=== PATIENT | male | born 1975 | race Caucasian/White ===

== ENCOUNTER 2017-11-19 02:42 | Inpatient (IN) | payer BC ==
[2017-11-19] MEDS ORDERED: HYDROmorphone 0.5 MG/0.5 ML SYRINGE ONE ×2 (03:09→03:23)
[2017-11-19] MEDS ORDERED: Labetalol HCl 100 MG/20 ML VIAL SLOW IVP PRN (05:04)
[2017-11-19 06:01] VITALS: BMI 30.2
[2017-11-19] MEDS: Meperidine HCl/PF 25 MG/ML VIAL SLOW IVP PRN ×2 (06:15→09:20)
[2017-11-19] MEDS: Sodium Chloride 0.9% 1,000 ML IV SCH ×3 (06:15→20:21)
[2017-11-19] MEDS: Piperacillin/Tazobactam 3.375 GM in Sodium Chloride 0.9% 100 ML IVPB SCH ×3 (06:40→20:20)
--- NOTE | 2017-11-19 08:04 | RAD ---
SINGLE VIEW CHEST: Date: 11/19/17 COMPARISON: None. HISTORY: Acute pancreatitis and hypoxia. FINDINGS: Single view of the chest shows a normal sized cardiomediastinal silhouette. There is no evidence of c onsolidation, mass, or pleural effusion. The bones are unremarkable. IMPRESSION: No evidence of acute cardiopulmonary disease. POS: [facility]
[2017-11-19] MEDS: Enoxaparin Sodium 40 MG/0.4 ML SYRINGE SC SCH (09:22)
[2017-11-19] MEDS ORDERED: FOLIC ACID SC SCH (12:30)
[2017-11-19] MEDS ORDERED: ADMIXTURE FEE CHEMO SC SCH (12:30)
[2017-11-19] MEDS: Morphine 4 MG/ML Carpuject SLOW IVP PRN ×3 (12:33→20:17)
--- NOTE | 2017-11-19 16:24 | HP ---
CHIEF COMPLAINT: Abdominal pain, transferred from [place]. HISTORY OF PRESENT ILLNESS: This is a 42-year-old man with history of hypertension, hyperlipidemia, hypercholesterolemia. He transferred from [facility] because of having abdominal pain s tarted in the morning. He said his pain is sharp, diffuse abdomen, started in the epigastrium radiat ed to the whole abdomen, 10/10. He had history of some vomiting for the pain. He went to ER. Over there, they gave him morphine, fentanyl, and that helped with the pain. They gave him and Dila udid. His lipase was more than [address] scan showed pancreatitis. He was transferred here. On further questioning, he did have a similar episode several months ago. Denies any alcohol use. He s aid he just drinks socially. The patient denies any chest pain, short of breath, hematemesis and me carmelina. PAST MEDICAL HISTORY: Hypertension, hyperlipidemia and pancreatitis in the past. MEDICATIONS: He is taking lisinopril, atorvastatin. PAST SURGICAL HISTORY: None. SOCIAL HISTORY: He does not smoke, denies drug use. Alcohol, he claims socially. FAMILY HISTORY: Noncontributory. REVIEW OF SYSTEMS: CONSTITUTIONAL: Negative for fever and chills. EYES: Negative for blurry vision and eye pain. ENT: Negative for sore throat. CARDIOVASCULAR: No active chest pain, no palpitation, no shortness of breath. RESPIRATORY: Negative for cough, no shortness of breath, no wheezing. GASTROINTESTINAL: He does have abdominal pain, nausea, and vomiting. No hematemesis, no melena. GENITOURINARY: Negative for hesitancy, urgency. MUSCULOSKELETAL: Negative for back pain. SKIN: No rash. NEUROLOGIC: Negative for headache, dizziness. HEMO/LYMPHATIC: Negative for any abnormal clotting disorder. PHYSICAL EXAMINATION: GENERAL: When I examined him, he is a middle aged gentleman lying in the bed with distress of pain, 10/10, with mild distress and pain. VITAL SIGNS: Pulse 102, blood pressure 152/95, respiration 21, temperature 99.0. HEENT: Head is atraumatic, normocephalic. Pupils are round, reactive. Extraocular muscles intact. Ears, nose and throat normal. Tongue mucosa moist. NECK: Supple, no JVD, no thyromegaly. Trachea is midline. No lymphadenopathy. LUNGS: Chest has normal vesicular breathing. No added sounds. No use of accessory muscle. CARDIAC: S1, S2 audible. No S3-4, he is tachycardia. ABDOMEN: He has slightly distended. Bowel sounds audible. Diffuse tenderness all abdomen, more epi gastrium. No pulsatile mass palpable. No guarding, no rigidity. BACK: Normal range of motion noted in the back. EXTREMITIES: No pedal edema. No cyanosis or clubbing. NEUROLOGICAL: Alert, oriented x3, no focal deficit. Cranial nerves II-XII normal. SKIN: Normal turgor, warm and dry. PSYCHIATRIC: Normal affect. LABORATORY DATA: Shows WBC 23.8, hematocrit 49, MCV 86, platelets 341, neutrophils 75, bands 15. Ch emistry shows sodium 140, potassium 3.4, chloride 94, carbon dioxide 24, BUN 7, creatinine 0.97, gluc ose 198, calcium 10.0, AST 29, ALT 53. Serum protein 8.4, albumin 1.2. Cholesterol 210. Triglyceri dominguez 644, LDL 125, HDL 39, lipase 790, TSH 0.5. CAT scan showed acute pancreatitis. ASSESSMENT AND PLAN: 1. Acute pancreatitis, etiology unclear, could be alcohol use as the patient denied, could be trigly cerides, but the levels are high. Plan; IV fluid, n.p.o., followed lipase, IV morphine for the pain, IV Zofran for the nausea and vomiting. IV Protonix 40 mg every day. IV Zosyn 3.375 q.6h. empirical ly. 2. Hypertension. Continue holding his blood pressure medication, IV labetalol p.r.n. for the blood pressure 180/100. 3. Hyperlipidemia with hypertriglyceridemia. We will continue holding his cholesterol medicine and keep him n.p.o. 4. Deep venous thrombosis prophylaxis, Lovenox.
--- NOTE | 2017-11-19 17:24 | CON ---
DATE OF CONSULTATION: 11/19/2017 REFERRING PHYSICIAN: [facility]. REASON FOR CONSULTATION: Abdominal pain and nausea. HISTORY OF PRESENT ILLNESS: Mr. Arvind Dent is a 42-year-old male hospitalized for abdo saqib pain and nausea. The patient's abdominal pain started yesterday morning. He initially went to [facility] and was given some pain medicines. The evaluation showed acute pancreatitis. He was tr ansferred subsequently because of the acute pancreatitis. The patient is known to have type 2 diabet es mellitus, hypertension, and hyperlipidemia. The patient was hospitalized in [place], [place] several months ago with similar episodes of acute pancreatitis. The tells me that he had some fluids i n the lung that has been drained out at that time. The patient does drink alcohol heavily off and on . Apparently, the first admission in [place], [place] several months ago, he was drinking very heavily the day before. The patient at this time has drunk very heavily on Sunday drinking a whole l ot. The pain started yesterday morning. This is the same pain what he had before. He also had some nausea and vomiting. The patient has had no gallstones by CAT scan. During the last admission in [place], [place], again, he had no gallstones. From the history, it appears he has more of an alcoholic pancreatitis. He has no other relevant history. PAST MEDICAL HISTORY: 1. Pancreatitis 7 months ago and hospitalized in [place], [place]. 2. Hypertension. 3. Diabetes mellitus. 4. Hyperlipidemia. PAST SURGICAL HISTORY: None. ALLERGIES: None. MEDICATIONS: List includes lisinopril and atorvastatin. FAMILY HISTORY: Unremarkable. SOCIAL HISTORY: The patient is . He smokes a packet of cigarettes per day. He also drinks a lcohol at least 2 or 3 times a week very heavy. No history of drug abuse. REVIEW OF SYSTEMS: A 10-point system reviewed. Constitutional: No history of fever. No weight los s. No night sweats. No chronic cough. PAPER CLEANER: No history of seizure disorder. No chronic headache. No syncope. No TIA. Respiratory System: No history of chronic cough, hemoptysis or dyspnea. Card iovascular: No chest pain, no palpitation, no dyspnea, orthopnea or PND. Gastrointestinal: As in [facility] history of present illness. Genitourinary: No dysuria, hematuria or frequency of urination. Mus culoskeletal: Unremarkable. Endocrine: Unremarkable. Neurologic: Unremarkable. Psychiatric: Un remarkable. PHYSICAL EXAMINATION: GENERAL: The patient is obese, appears comfortable and in no distress. VITAL SIGNS: Stable. He is afebrile with a temperature of 98 degrees Fahrenheit, pulse is 85 and bl ood pressure 103/66. HEENT: Conjunctivae clear. NECK: Supple. No adenitis or thyromegaly noted. CARDIOVASCULAR SYSTEM: First and second heart sounds are normal. LUNGS: Clear to auscultation. ABDOMEN: Distended, but soft to palpate. Abdomen is tender over the epigastric area. There is no r ebound or guarding. There is no bowel sounds audible. EXTREMITIES: Reveal no edema. LABORATORY DATA: Shows WBC is 23,800, hemoglobin 16.4, hematocrit 49, MCV 86.6, platelet count is 341 ,000, polymorphs 75, bands 15% and lymphocytes 5. Serum lipase is 793, triglycerides 644 and glucose 198. Chem-7 is normal except for slightly low potassium of 3.4, BUN is 7, calcium 10, bilirubin 0.8 , AST 29, ALT 53 and alkaline phosphatase 133. IMAGING DATA: Abdominal CAT scan shows evidence of pancreatitis, there is peripancreatic edema and s welling. There are no gallstones and the bile duct is normal caliber. He also has fatty liver. Jose G gs show a small amount of fluid in the left side with some atelectasis. CLINICAL IMPRESSION: 1. Acute pancreatitis, recurrent. The patient has admitted drinking alcohol heavily. Apparently, darlene novoa drank a large amount of alcohol over the weekend on Sunday. His pain started yesterday morning. He also has hyperlipidemia. The hyperlipidemia is mainly because of the pancreatitis. 2. Type 2 diabetes mellitus. 3. Hypertension. 4. Obesity. 5. Hyperlipidemia. RECOMMENDATIONS: 1. N.p.o. 2. Analgesics. 3. IV fluids. 4. Follow up labs. I did talk to Mr. Dent in length and explaining that he needs to stop drinking completely.
[2017-11-19 18:25] LABS: Bilirubin Negative (Negative); Blood, Urine Negative (Negative); Clarity CLEAR (Clear); Glucose, Urine (Dipstick) Negative (Negative); Leukocyte Negative (Negative); Nitrite Negative (Negative); Protein, Urine (Dipstick) Negative (Neg-Trace); Specific Gravity, Urine 1.008 (1.002-1.036); Urobilinogen 0.2 mg/dL (0.2-1.0); pH, Urine 7.5 (5.0-9.0)
[2017-11-19 18:28] LABS: Bacteria/HPF None Seen HPF (None Seen); Hyaline Casts/LPF 0-3 HYALINE CAST LPF (0-3 Hyaline); RBC/HPF 0-3 HPF (0-3); Squamous Epithelial None Seen HPF (0-3); WBC/HPF 0-3 HPF (0-3)
[2017-11-20] MEDS: Morphine 4 MG/ML Carpuject SLOW IVP PRN ×8 (00:24→23:41)
[2017-11-20] MEDS: Sodium Chloride 0.9% 1,000 ML IV SCH ×3 (00:25→17:53)
[2017-11-20] MEDS: Piperacillin/Tazobactam 3.375 GM in Sodium Chloride 0.9% 100 ML IVPB SCH ×4 (02:42→20:41)
[2017-11-20 05:05] LABS: #Eosinphils 0.4 thou/uL (0.0-0.7); #Lymphocytes 1.8 thou/uL (1.20-3.40); #Monocytes 0.9 thou/uL (0.11-0.59); #Neutrophils 10.6 thou/uL (1.40-6.50); %Basophils 0.3 % (0.0-1.0); %Eosinophils 3.2 % (0.0-10.0); %Lymphocytes 13.2 % (21.0-51.0); %Monocytes 6.2 % (0.0-10.0); %Neutrophils 77.1 % (42.0-75.0); Hemoglobin 14.3 g/dL (14.0-18.0); Mean Corpuscular Hemoglobin 31.1 pg (27.0-31.0); Mean Platelet Volume 7.6 fL (7.4-10.4); Platelet Count 175 thou/uL (130-400); RBC Distribution Width 13.2 % (11.5-14.5); White Blood Cell (WBC) Count 13.8 thou/uL (4.8-10.8)
[2017-11-20 05:34] LABS: ALT (SGPT) 30 U/L (8-55); AST (SGOT) 20 U/L (5-34); Albumin 3.6 g/dL (3.5-5.0); Alkaline Phosphatase 95 U/L (40-150); Anion Gap 15 mmol/L (10-20); BUN (Urea Nitrogen) 5 mg/dL (8.9-20.6); Bilirubin, Total 1.4 mg/dL (0.2-1.2); Calc. Creatinine Clearance 182 mL/min (70-130); Calcium 8.9 mg/dL (7.8-10.44); Carbon Dioxide 27 mmol/L (22-29); Cardiac Risk 6.5 (Less than 4.5); Chloride 99 mmol/L (98-107); Cholesterol 149 mg/dl (< 200 Desired); Estimated GFR-MDRD Greater than 90; Globulin 3.3 g/dL (2.4-3.5); Glucose 123 mg/dL (70-105); HDL Cholesterol 23 mg/dL (>60 Neg Risk); Lipase 128 U/L (8-78); Protein, Total 6.9 g/dL (6.0-8.3); Sodium 138 mmol/L (136-145); Triglycerides 453 mg/dL (Less than 150)
[2017-11-20] MEDS ORDERED: Folic Acid 0.4 MG in Pre-Filled Syringe 1 EACH SC SCH (09:00)
[2017-11-20] MEDS ORDERED: chlordiazePOXIDE HCl 25 MG CAP PO PRN (09:58)
[2017-11-20] MEDS ORDERED: Potassium Chloride 20 MEQ TAB PO SCH (10:00)
[2017-11-20] MEDS: Enoxaparin Sodium 40 MG/0.4 ML SYRINGE SC SCH (10:20)
[2017-11-20 10:55] LABS: Calcium 8.8 mg/dL (7.8-10.44); Chloride 101 mmol/L (98-107); Magnesium 2.2 mg/dL (1.6-2.6); Potassium 4.3 mmol/L (3.5-5.1); Sodium 133 mmol/L (136-145)
[2017-11-20 11:04] LABS: BUN (Urea Nitrogen) 6 mg/dL (8.9-20.6); Calc. Creatinine Clearance 190 mL/min (70-130); Carbon Dioxide 18 mmol/L (22-29); Estimated GFR-MDRD Greater than 90; Glucose 110 mg/dL (70-105)
[2017-11-20 11:08] LABS: Anion Gap 18 mmol/L (10-20)
--- NOTE | 2017-11-20 11:12 | PRG ---
DATE OF SERVICE: 11/20/2017 HISTORY OF PRESENT ILLNESS: Arvind Dent is a 42-year-old male hospitalized with acute panc reatitis. The patient is on IV morphine every 4 hours. He complains of abdominal pain. He was rest less last night with abdominal pain and is unable to sleep. He is getting pain medicine every 4 hour s, and he says the pain medicine wears off in 2-3 hours, and he starts having pain again. When he garcia s pain, his blood pressure goes up. He has no nausea or vomiting. He has actually passed a mild rolando unt of gas this morning. PHYSICAL EXAMINATION: GENERAL: Appears to be in mild distress. VITAL SIGNS: Temperature 99.2 degrees Fahrenheit, pulse 95, blood pressure 181/107. CARDIOVASCULAR: First and second heart sounds normal. LUNGS: Clear to auscultation. ABDOMEN: Softer today and less distended. Abdomen is still markedly tender over the epigastric area . There is no rebound or guarding. He has occasional bowel sounds. LABORATORY DATA: Shows marked improvement in his lipase back to normal close to being normal at 128. His triglycerides 453. His Chem-7 is normal except for potassium of 3, glucose 123, bilirubin 1.4. CBC; hemoglobin is 14.3, hematocrit 41. WBC count is 3300. RECOMMENDATIONS: 1. Keep n.p.o. until hopefully tomorrow. 2. Increase pain medicine frequency to q.3h.
--- NOTE | 2017-11-20 16:34 | PDOC.PN ---
- Subjective Encounter Start Date: 11/20/17 Encounter Start Time: 16:33 c/o abd pain no n/v no f/c - Objective MAR Reviewed: Yes Vital Signs & Weight: Vital Signs (12 hours) Temp Pulse Resp BP Pulse Ox 11/20/17 12:00 99.2 F 84 20 156/100 H 95 11/20/17 08:00 99.2 F 95 20 181/107 H 94 L 11/20/17 05:44 98.9 F 82 18 174/91 H 92 L Weight Admit Weight 217 lb 1.6 oz Weight 217 lb 1.6 oz I&O: 11/19/17 11/20/17 11/21/17 06:59 06:59 06:59 Intake Total 1500 Balance 1500 Result Diagrams: 11/20/17 04:02 11/20/17 10:30 Additional Labs: Accuchecks 11/20/17 11/20/17 11/19/17 11:35 04:22 20:35 POC Glucose 106 117 H 111 H 11/19/17 18:54 POC Glucose 117 H Phys Exam - Physical Examination Constitutional: NAD HEENT: PERRLA Neck: no JVD Respiratory: no wheezing Cardiovascular: no significant murmur Gastrointestinal: no distention Musculoskeletal: pulses present Neurological: normal sensation, moves all 4 limbs Psychiatric: A&O x 3 Dx/Plan (1) Acute pancreatitis Code(s): K85.90 - ACUTE PANCREATITIS WITHOUT NECROSIS OR INFECTION, UNSP Status: Acute (2) Alcohol use Code(s): Z78.9 - OTHER SPECIFIED HEALTH STATUS Status: Acute (3) Diabetes mellitus Code(s): E11.9 - TYPE 2 DIABETES MELLITUS WITHOUT COMPLICATIONS Status: Acute (4) HTN (hypertension) Code(s): I10 - ESSENTIAL (PRIMARY) HYPERTENSION Status: Acute - Plan * npo * ivf * pain mx * gi input appreciated
[2017-11-20] MEDS: Famotidine/PF 20 mg/2ml Vial SLOW IVP SCH (20:41)
[2017-11-21] MEDS: Piperacillin/Tazobactam 3.375 GM in Sodium Chloride 0.9% 100 ML IVPB SCH ×4 (01:46→20:54)
[2017-11-21] MEDS: Morphine 4 MG/ML Carpuject SLOW IVP PRN (02:42)
[2017-11-21] MEDS: Sodium Chloride 0.9% 1,000 ML IV SCH ×3 (02:43→20:59)
[2017-11-21] MEDS: Famotidine/PF 20 mg/2ml Vial SLOW IVP SCH ×2 (08:19→20:55)
[2017-11-21] MEDS: Enoxaparin Sodium 40 MG/0.4 ML SYRINGE SC SCH (08:19)
[2017-11-21] MEDS: FOLIC ACID SC SCH (08:20)
[2017-11-21] MEDS: PRE FILLED SC SCH (08:20)
--- NOTE | 2017-11-21 10:28 | PRG ---
DATE OF SERVICE: 11/21/2017 HISTORY OF PRESENT ILLNESS: This is a 42-year-old male hospitalized with acute pancreatiti s. The patient has no gallstones on CAT scan. The patient had similar episodes a few months ago. T he patient does admit to drinking nearly off and on. Serum lipase has come down to normal today at 6 2. He is actually feeling better. Since early this morning he has no abdominal pain. He is passing flatus and is not having nausea or vomiting. He feels hungry and he wants to eat. PHYSICAL EXAMINATION: GENERAL: Appears comfortable. VITAL SIGNS: Stable. Temperature 99 degrees Fahrenheit, pulse 91, blood pressure is 164/90. CARDIOVASCULAR/LUNGS: Within normal limits. ABDOMEN: Distended, but soft to palpate. Abdomen is nontender. LABORATORY DATA: From this morning shows lipase is down to 62. CLINICAL IMPRESSION: Acute pancreatitis, pain resolved and he says he is feeling better. PLAN: Clear liquid diet today and advance diet to a regular diet hopefully tomorrow. If he does we ll and has no abdominal pain may consider discharging in the next 24 hours.
--- NOTE | 2017-11-21 14:10 | PDOC.PN ---
- Subjective Encounter Start Date: 11/21/17 Encounter Start Time: 12:15 -: old records requested/rev Pt seen and exmained, chart reviewed in its entirety. This is my first vist with this patient. Pt admitted for acute pancreatitis, presumed secondary to etoh binging. Pt state shis abd pain resovled completely early this morning, no N/V,no CP or sOb,no F/C. On zosyn empirically. pt hungry, clears ordered by Dr dumont after his visit earlier this morning. 10 point ROs performed and neg for all systems except as per hPI - Objective Resuscitation Status: FULL MAR Reviewed: Yes Vital Signs & Weight: Vital Signs (12 hours) Temp Pulse Resp BP Pulse Ox 11/21/17 08:00 99.0 F 91 20 164/98 H 96 Weight Admit Weight 217 lb 1.6 oz Weight 217 lb 1.6 oz I&O: 11/20/17 11/21/17 11/22/17 06:59 06:59 06:59 Intake Total 1500 3250 Balance 1500 3250 Result Diagrams: 11/20/17 04:02 11/20/17 10:30 Additional Labs: Accuchecks 11/21/17 11/21/17 11/20/17 12:04 05:13 20:48 POC Glucose 161 H 84 104 11/20/17 16:40 POC Glucose 95 Radiology Reviewed by me: Yes EKG Reviewed by me: Yes Phys Exam - Physical Examination Constitutional: NAD HEENT: PERRLA, moist MMs, sclera anicteric, oral pharynx no lesions Neck: no nodes, no JVD, supple, full ROM Respiratory: no wheezing, no rales, no rhonchi, clear to auscultation bilateral Cardiovascular: RRR, no significant murmur, no rub Gastrointestinal: soft, non-tender, no distention, positive bowel sounds Musculoskeletal: no edema, pulses present Neurological: non-focal, normal sensation, moves all 4 limbs Lymphatic: no nodes Psychiatric: normal affect, A&O x 3 Skin: no rash, normal turgor, cap refill <2 seconds Dx/Plan - Plan cont current plan of care, PT/OT, out of bed/ambulate, DVT proph w/lovenox * . will stop abx
[2017-11-22] MEDS: Piperacillin/Tazobactam 3.375 GM in Sodium Chloride 0.9% 100 ML IVPB SCH ×2 (01:51→08:53)
[2017-11-22 05:04] LABS: #Basophils 0.1 thou/uL (0.0-0.2); #Eosinphils 0.4 thou/uL (0.0-0.7); #Lymphocytes 1.8 thou/uL (1.20-3.40); #Monocytes 0.5 thou/uL (0.11-0.59); #Neutrophils 7.3 thou/uL (1.40-6.50); %Basophils 0.7 % (0.0-1.0); %Eosinophils 4.3 % (0.0-10.0); %Lymphocytes 17.8 % (21.0-51.0); %Monocytes 4.9 % (0.0-10.0); %Neutrophils 72.3 % (42.0-75.0); Hemoglobin 13.2 g/dL (14.0-18.0); Mean Corpuscular HGB CONC 33.5 g/dL (32.0-36.0); Mean Corpuscular Hemoglobin 29.4 pg (27.0-31.0); Mean Corpuscular Volume 87.9 fl (80.0-94.0); Mean Platelet Volume 7.5 fL (7.4-10.4); Platelet Count 209 thou/uL (130-400); RBC Distribution Width 12.7 % (11.5-14.5)
[2017-11-22 05:27] LABS: ALT (SGPT) 31 U/L (8-55); AST (SGOT) 35 U/L (5-34); Albumin 3.6 g/dL (3.5-5.0); Alkaline Phosphatase 92 U/L (40-150); Anion Gap 15 mmol/L (10-20); BUN (Urea Nitrogen) 7 mg/dL (8.9-20.6); Bilirubin, Total 0.8 mg/dL (0.2-1.2); Calc. Creatinine Clearance 193 mL/min (70-130); Calcium 8.9 mg/dL (7.8-10.44); Carbon Dioxide 21 mmol/L (22-29); Chloride 106 mmol/L (98-107); Estimated GFR-MDRD Greater than 90; Globulin 3.2 g/dL (2.4-3.5); Glucose 108 mg/dL (70-105); Lipase 95 U/L (8-78); Magnesium 1.7 mg/dL (1.6-2.6); Potassium 3.1 mmol/L (3.5-5.1); Protein, Total 6.8 g/dL (6.0-8.3); Sodium 139 mmol/L (136-145)
[2017-11-22] MEDS: Famotidine/PF 20 mg/2ml Vial SLOW IVP SCH (08:53)
[2017-11-22 09:02] VITALS: BP 158/92
[2017-11-22] MEDS: Sodium Chloride 0.9% 1,000 ML IV SCH (10:07)
[2017-11-22 11:45] VITALS: TEMP 98.9
--- NOTE | 2017-11-22 12:10 | DIS ---
DATE OF ADMISSION: 11/19/2017 DATE OF DISCHARGE: 11/22/2017 DISCHARGE DIAGNOSES: 1. Acute alcoholic pancreatitis. 2. Diabetes mellitus type 2. 3. Essential hypertension. 4. Intractable abdominal pain. CONSULTATIONS: Gastroenterology, Dr. Amaya on 11/19/2017. PROCEDURES: None. HISTORY OF PRESENT ILLNESS: Mr. Dent is a 42-year-old white male with history of hypertension, diab etes, and heavy alcohol usage and hyperlipidemia who [facility] that started the morning of admission. Pain was sharp, but all over his abdomen, it really started in the epigastric region, radiating everywhere, rated 10/10. He did have some referral to the back. He had some vomiting. In the emergency department, they ga ve him morphine, fentanyl, and improved his symptoms. Lipase was over 700. CT scan showed acute ortega creatitis and he was subsequently transferred here. The patient did have several similar episodes se veral months prior to admission. Initially denied any alcohol use, but to me said he does drink heav loi occasionally on weekends. HOSPITAL COURSE: The patient was seen and examined by Dr. Marcus Davies. The patient was placed in inpatient status on admission, started on IV fluids, triglycerides were checked, he was started on IV Zosyn for possible acute infection and morning labs were ordered. He was kept n.p.o. Blood pressur e was elevated. Blood pressure medicine was on hold due to n.p.o. status, he was given p.r.n. labeta lol and his statin was being held as well. He was placed on Lovenox for DVT prophylaxis. Overnight from 11/19/2017 to 11/20/2017 the patient had decreased symptoms. He was seen by Dr. Jordan Amaay. He was kept n.p.o. and pain, improved. By 11/21/2017 in the morning his pain resolved. I took over the case that day. He was started on ann ar liquid diet per Gastroenterology and advanced. He did well with his clear liquid lunch and full l iquid dinner and was ordered a regular diet for breakfast on 11/22/2017. Lipase had improved down to the 60 range and he was afebrile. By 11/22/2017 he tolerated a regular diet, he had no further pain, lipase remained stable under 100, and he was subsequently ready for discharge with outpatient followup. PHYSICAL EXAMINATION: The patient was seen and examined on the day of discharge. Discharge plan and disposition was discussed with the patient face to face at the bedside. DISCHARGE MEDICATIONS: 1. Aspirin 81 mg daily. 2. Atorvastatin 40 mg p.o. daily. 3. Librium 25 mg p.o. t.i.d. p.r.n. alcohol withdrawal, prescription for 10 tablets with no refills sent. 4. Iron sulfate 325 mg daily. 5. Glipizide 5 mg p.o. q.a.m. 6. Lisinopril 20 mg p.o. b.i.d. 7. Metformin 500 mg p.o. b.i.d. 8. Ranitidine 75 mg p.o. daily p.r.n. heartburn. 9. Chantix 1 mg p.o. b.i.d. per preadmission levels. DISCHARGE DIET: Heart healthy diabetic diet recommended. DISCHARGE ACTIVITY: Per cardiopulmonary limits. FOLLOWUP APPOINTMENTS: 1. Primary care physician within a week, that is Dr. Robbie Baxter. 2. Gastroenterology, Dr. Amaya as needed. DISCHARGE CONDITION: Stable. DISPOSITION: He will be discharged home via private vehicle.
[2017-11-22] MEDS: Enoxaparin Sodium 40 MG/0.4 ML SYRINGE SC SCH (12:46)
[2017-11-22] MEDS: FOLIC ACID SC SCH (12:46)
[2017-11-22] MEDS: PRE FILLED SC SCH (12:46)
== END 2017-11-22 13:01 | disposition home or self-care (01) | DRG 440 ==
LOC: ERS 02:42 → T4-B 05:47
PROVIDERS: ADMIT Family Medicine; ATTEND Family Medicine
DX: K85.20 Alcohol induced acute pancreatitis without necrosis or infection (principal); E11.9 Type 2 diabetes mellitus without complications; I10 Essential (primary) hypertension; E78.5 Hyperlipidemia, unspecified; F17.210 Nicotine dependence, cigarettes, uncomplicated; E66.9 Obesity, unspecified; Z68.30 Body mass index [BMI] 30.0-30.9, adult; Z79.82 Long term (current) use of aspirin; Z79.84 Long term (current) use of oral hypoglycemic drugs; Z79.899 Other long term (current) drug therapy
CPT/HCPCS: 36415; 36416; 71045; 80053; 80061; 81001; 83690; 83735; 85025; 96361; 96374; A4216; J1170; J1650; J2175; J2270; J2543; J3411; J7050; S0028